=== PATIENT | female | born 1955 | race Two or more races ===

== ENCOUNTER → 2020-10-03 | Emergency (ER) | payer OTHER ==
[~2020-10-03] VITALS: Ht 157.5 cm; Wt 83.9 kg
[~2020-10-03] MED LIST: DILTIAZEM ER180 M1; METFORMIN HCL1000 M2; PRILOSEC OTC20 MG; SIMVASTATIN5 MG
== END | disposition left against medical advice (07) ==
LOC: ER 14:14
DX: Z53.20 Procedure and treatment not carried out because of patient's decision for unspecified reasons (principal)